=== PATIENT | female | born 1990 | race Caucasian/White ===

== ENCOUNTER 2024-11-09 19:41 | Emergency (ER) | payer BC ==
[~2024-11-09] VITALS: Ht 162.6 cm; Wt 63.2 kg
[2024-11-09 20:46] LABS: BASO # 0.1 10^3/uL (0.0-0.2); BASO % 0.5 % (0.0-1.0); EOS # 0.1 10^3/uL (0.0-0.5); EOS % 1.0 % (0.0-3.0); LYMPH # 2.8 10^3/uL (1.5-5.0); LYMPH % 30.4 % (24.0-44.0); MONO # 0.7 10^3/uL (0.0-0.8); MONO % 7.4 % (2.0-8.0); NEUTROPHILS # 5.6 10^3/uL (1.5-8.5); NEUTROPHILS % 60.5 % (36.0-66.0); PLATELET COUNT, AUTOMATED 276 10^3/uL (150-450)
[2024-11-09 21:25] LABS: HCG, SERUM QUANTITATIVE < 2.6 MIU/ML (<4.2)
[2024-11-09 21:26] LABS: ALT/SGPT 20 U/L (7.0-40); AST/SGOT 24 U/L (<34)
[2024-11-09 22:10] LABS: CALCIUM LEVEL 10.2 MG/DL (8.5-10.1); CARBON DIOXIDE LEVEL 25 MMOL/L (20-31); CHLORIDE LEVEL 108 MMOL/L (98-107); CREATININE FOR GFR 0.97 MG/DL (0.55-1.30); GLOMERULAR FILTRATION RATE 79.1 (>60); POTASSIUM SERUM 4.4 MMOL/L (3.5-5.1); SODIUM LEVEL 145 MMOL/L (136-145)
[2024-11-09] MEDS: ONDANSETRON 4MG 2ML VIAL IV ONE (23:38)
[2024-11-09] MEDS: KETOROLAC 30 MG/ML 1 ML VIAL IV ONE (23:38)
[2024-11-09] MEDS: NS (Normal Saline) 0.9% 1,000 ML IV ONE (23:38)
[2024-11-09 23:40] LABS: KETONE, URINE AUTO RFX 1+ mg/dL (NEGATIVE); LEUKOCYTE ESTERASE UR AUTO RFX NEGATIVE (NEGATIVE); MUCUS, URINE RFX SMALL (NEGATIVE); NITRITE, URINE AUTO RFX NEGATIVE (NEGATIVE); RBC, URINE AUTO RFX 1 /HPF (0-3); SQUAM EPITHELIAL CELL UR AURFX 3 /HPF (0-6); WBC, URINE AUTO RFX 0 /HPF (0-3)
[2024-11-09] MEDS ORDERED: ISOVUE-370 76% 100 ML VIAL As Ordered ONE (23:41)
[2024-11-10] MEDS ORDERED: ONDA-282 PO (00:45)
[2024-11-10 01:00] VITALS: BP 93/51; TEMP 97.1; O2SAT 98
[2024-11-10] MEDS: ONDANSETRON 4MG ORAL DISINTEGRATING TAB PO ONE (01:03)
== END 2024-11-10 01:10 | disposition home or self-care (01) ==
LOC: M ED 19:41
DX: A09 Infectious gastroenteritis and colitis, unspecified (principal); G43.909 Migraine, unspecified, not intractable, without status migrainosus
CPT/HCPCS: 74177; 80048; 80076; 81001; 83690; 84702; 85025; 96361; 96374; 96375; 99284; J1885; J2405; Q9967